=== PATIENT | female | born 1975 | race Caucasian/White ===

== ENCOUNTER → 2017-04-24 | Outpatient (CLI) | payer OTHER ==
[~2017-04-24] MED LIST: AMITRIPTYLINE H25 M2 PO; APAP500 PO; ARMOUR THYROID15 M1 PO; CELEXA 10 MG TA10 M1 PO; COLACE 100 MG100 MG PO; DOXY 100100 MG IV; IBUPROFEN 800800 M1 PO; LANOLIN56 GM; LORTAB; MOM; PHENERGAN 25 MG25 M1 PO; PROBIOTIC1 EAC2 PO
[2017-04-24 12:15] VITALS: BP 110/52
[2017-04-24 13:00] VITALS: BP 110/52
== END ==
LOC: SPEC 04-19 08:17 → OPONC 09:57 → SPEC 09:57
DX: A77.0 Spotted fever due to Rickettsia rickettsii (principal)
CPT/HCPCS: 95000

== ENCOUNTER 2017-04-30 10:02 | Emergency (ER) | payer OTHER ==
[~2017-04-30] VITALS: Ht 160 cm; Wt 56.7 kg
[2017-04-30 11:06] VITALS: BP 100/50
== END 2017-04-30 11:08 | disposition home or self-care (01) ==
LOC: ER 10:02
DX: Z45.2 Encounter for adjustment and management of vascular access device (principal); Z88.0 Allergy status to penicillin; Z90.49 Acquired absence of other specified parts of digestive tract